=== PATIENT | male | born 1980 | race Caucasian/White ===

== ENCOUNTER 2021-06-06 23:43 | Emergency (ER) | payer OTHER ==
[2021-06-07] MEDS ORDERED: NAPROXEN500 MG PO (02:05)
[2021-06-07] MEDS ORDERED: PERCOCET 5-3251 EACH PO (02:07)
[2021-06-07] MEDS ORDERED: DIAZEPAM 5MG TAB5 MG PO (02:54)
== END 2021-06-07 03:13 | disposition home or self-care (01) ==
LOC: FER 23:43
DX: S43.004A Unspecified dislocation of right shoulder joint, initial encounter (principal); F17.210 Nicotine dependence, cigarettes, uncomplicated
CPT/HCPCS: 73020; 96374; 96375; J1170; J2250; J3360

== ENCOUNTER 2021-07-25 01:19 | Emergency (ER) | payer OTHER ==
[~2021-07-25 01:19] MED LIST: DIAZEPAM 5MG TAB5 MG PO; NAPROXEN500 MG PO; PERCOCET 5-3251 EACH PO
== END 2021-07-25 04:17 | disposition home or self-care (01) ==
LOC: FER 01:19
DX: S43.014A Anterior dislocation of right humerus, initial encounter (principal); S43.034A Inferior dislocation of right humerus, initial encounter; F17.200 Nicotine dependence, unspecified, uncomplicated; X50.9XXA Other and unspecified overexertion or strenuous movements or postures, initial encounter; Y92.009 Unspecified place in unspecified non-institutional (private) residence as the place of occurrence of the external cause
CPT/HCPCS: 73030; 96374; J3010